=== PATIENT | male | born 1945 | race Caucasian/White ===

== ENCOUNTER → 2017-03-30 | Outpatient (CLI) | payer MEDICARE, BC ==
[~2017-03-30] MED LIST: ANTIBIOTIC28.4 GM TOP; COUMADIN1 MG PO; COUMADIN3 MG PO; ELIQUIS5 MG PO; SENNA-DOCUSATE1 EACH PO; TYLENOL325 MG PO; ULTRAM50 MG PO
== END | disposition short-term general hospital (02) ==
LOC: CLCARD 09:31
DX: I25.10 Atherosclerotic heart disease of native coronary artery without angina pectoris (principal); I45.2 Bifascicular block; I35.0 Nonrheumatic aortic (valve) stenosis; I48.1 Persistent atrial fibrillation